=== PATIENT | male | born 1935 | race Caucasian/White ===

== ENCOUNTER 2017-08-04 16:56 | Inpatient (IN) | payer OTHER ==
[~2017-08-04] VITALS: Ht 167.6 cm; Wt 77.2 kg
[~2017-08-04 16:56] MED LIST changes: -ASPI81TA28 PO; -LIDOCAINE HCL 2% 2 ML VIAL (20MG/ML) ONE; -PROPOFOL IV EMULSION 10 MG/ML 20 ML VIAL IV ONE; -SODIUM CHLORIDE 0.9% 500ML 500 ML IV ONE
[2017-08-04] MEDS ORDERED: ACETAMINOPHEN 500 MG TAB PO STA (18:34)
[2017-08-04] MEDS ORDERED: SODIUM CHLORIDE 0.9% 1000ML 1,000 ML IV ONE (18:34)
--- NOTE | 2017-08-04 18:51 | EMERGENCY ROOM VISIT NOTE ---
History Report prepared by Venancio: Bj Lama Under the Supervision of: Dr. Bruce Vernon M.D. First contact with patient: 18:10 Chief Complaint: NEURO SYMPTOMS Stated Complaint: TREMORS S/P COLONOSCOPY TODAY Nursing Triage Summary: pt had colonoscopy at 1100 today has been shakey ever since . daughter reports pt has been sick since being of june and this was another test to see what was wrong with him. losing wt., constipation ,weakness ,wobbly on feet ,shakey History of Present Illness The patient is an 81 year old male who presents to the Emergency Room with complaints of persistent shaking and tremors starting this morning. The patient states that he had a colonoscopy done today at 1100, and afterwards he had something to eat and went home. He states that when he got home he was very cold , and he was shaking. He was wrapped up in a blanket, and he started to get warm again. The patient is denying any abdominal pain. The patient states that he got the colonoscopy due to having problems since June, and he has been fatigued, losing weight, weak, unable to sleep, and constipated before the colonoscopy. The patient additionally reports that he is having some back pain and pain down the back of his legs. He states that he has not had any problems with anesthesia in the past. The patient has a history of an aortic aneurysm, diverticulitis, and Grave's disease, though his thyroid has been fine recently, and his abdominal CT scans have been fine. The patient states that he does not vigil, and he states that he has a dog that occasionally goes outside. Source of History: patient, family Onset: this morning Position: other (global) Quality: other (shaking and tremors) Timing: other (persistent) Associated Symptoms: + back pain, No abdominal pain Review of Systems See HPI for pertinent positives & negatives. A total of 10 systems reviewed and were otherwise negative. Past Medical & Surgical Medical Problems: (1) CAD (coronary artery disease), [place] coronary artery (2) Dilated aortic root (3) Diverticulosis (4) Dyslipidemia (5) GERD (gastroesophageal reflux disease) (6) HTN (hypertension) (7) Hypothyroidism (8) Macular degeneration (9) Pneumonia Surgical Problems: (1) H/O cardiac catheterization (2) H/O colonoscopy (3) History of appendectomy (4) History of esophagogastroduodenoscopy (EGD) (5) History of lumbar laminectomy Social History Smoking Status: Never Smoker Marital Status: Occupation Status: retired Current/Historical Medications Scheduled Aspirin (Aspirin Ec), 81 MG PO QPM Atorvastatin (Lipitor), 40 MG PO QPM Clopidogrel Bisulfate (Plavix), 1 TAB PO QAM Levothyroxine Sodium (Levothyroxine Sodium), 1 TAB PO QAM Lisinopril (Prinivil), 5 MG PO QPM Metoprolol Succ (Toprol Xl) (Toprol-Xl), 25 MG PO QAM Nitroglycerin (Nitrostat), 0.4 MG UT PRN Ocuvite Preservision (Ocuvite Preservision), 1 TAB PO BID Omeprazole (Prilosec), 20 MG PO BID Allergies Coded Allergies: Codeine (Verified Adverse Reaction, Mild, CONSTIPATION, 08/04/17) Physical Exam Vital Signs Date Time Temp Pulse Resp B/P (MAP) Pulse Ox O2 Delivery O2 Flow Rate FiO2 08/04/17 20:16 64 22 111/65 99 Room Air 08/04/17 18:49 96 Room Air 08/04/17 18:26 83 24 105/76 96 Room Air 08/04/17 18:24 79 08/04/17 17:09 37.9 99 18 116/70 94 Room Air Physical Exam GENERAL: Patient is a healthy-appearing well-nourished male HEAD: Normocephalic atraumatic EYES: Ocular movements intact pupils equal and react to light OROPHARYNX mucous membranes are moist no exudates present no erythema or edema present NECK: Supple no nuchal rigidity CHEST: Good equal expansion LUNGS: Clear and equal to auscultation CARDIAC: Normal S1 and S2 ABDOMEN: Soft nontender no guarding BACK: No CVA tenderness EXTREMITIES: No pain upon palpation normal muscle strength in all groups no clubbing cyanosis or edema NEURO: Patient is following commands and answering questions appropriately. Alert and oriented x3 Cranial Nerves 2-12 grossly intact Medical Decision & Procedures ER Provider Diagnostic Interpretation: Radiology results as stated below per my review and radiologist interpretation: CHEST ONE VIEW PORTABLE HISTORY: Sepsis COMPARISON: None. FINDINGS: Low lung volumes. No pleural effusions. No pneumothorax. The right lung is clear. The heart is mildly enlarged. Hazy appearance to the left mid to lower lung zone. IMPRESSION: Hazy appearance the left mid to lower lung zone. This may be due to overlapping soft tissue or represent a pneumonia. Electronically signed by: Goyo Gary M.D. 08/04/2017 7:49 PM Dictated Date/Time: 08/04/2017 7:47 PM ABDOMEN AND PELVIS CT WITH IV CONTRAST CT DOSE: 442.71 mGy.cm HISTORY: Pt c/o colonoscopy, rigors, fever TECHNIQUE: Multiaxial CT images of the abdomen and pelvis were performed following the use of intravenous contrast. A dose lowering technique was utilized adhering to the principles of ALARA. COMPARISON STUDY: Chest 08/04/2017. FINDINGS: Small patchy density within the lingula which is partially visualized. No pneumoperitoneum. No pneumatosis. There are few scattered tiny lytic lesions seen within the ribs. Dominant lesion within the left posterior 12th rib on image 133 measures 7 mm. The visualized ascending thoracic aorta measures up to 4.6 cm and diameter. Small hiatus hernia. Low-density soft tissue nodule adjacent to the distal descending thoracic aorta is nonspecific but could be related to the venous structures. This measures 1.5 cm. The liver, gallbladder, pancreas, and adrenal glands are unremarkable. There are few tiny hypodensities within the inferior spleen with the largest measuring 3 mm. These are too small to characterize. There are few tiny hypodense lesions within the left kidney measuring up to 3 mm. These are also too small to characterize. A 3 mm stone within the upper pole of the right kidney. No ureteral stones. No hydronephrosis. The bladder is not well-distended. There may be mild bladder wall thickening. No retroperitoneal lymphadenopathy. Colonic diverticulosis. No bowel wall thickening or obstruction. The appendix is not identified and is likely surgically absent. The prostate gland is mildly enlarged. IMPRESSION: 1. No bowel wall thickening or obstruction. 2. Colonic diverticulosis. 3. Right-sided nephrolithiasis. No ureteral stones. No hydronephrosis. 4. Aneurysmal dilatation of the ascending thoracic aorta which measures up to 4.6 cm in diameter. 5. A few scattered tiny lytic lesions seen within the ribs. These are nonspecific but raise the possibility of a neoplastic process such as multiple myeloma. Clinical correlation recommended. 6. Mild bladder wall thickening. This is likely due to underdistention. Recommend correlation with urinalysis. 7. Small patchy density within the lingula. This could represent atelectasis or pneumonia. Electronically signed by: Goyo Gary M.D. 08/04/2017 8:02 PM Dictated Date/Time: 08/04/2017 7:[address] DOSE: HISTORY: Pt c/o low back pain TECHNIQUE: Multiaxial CT images of the lumbar spine were performed and reformatted in the sagittal and coronal plane without the use of contrast. A dose lowering technique was utilized adhering to the principles of ALARA. COMPARISON: Abdomen and pelvis CT 08/04/2017. FINDINGS: No fractures within the lumbar spine. Alignment appears intact. There is advanced degenerative changes within the lower facets. Moderate to space narrowing at L5-S1. Mild disc space are at L4-L5. There are severe disc space narrowing at L1-L2, L2-L3, and L3-L4 with small endplate osteophytes. Levoscoliosis of the lumbar spine. The visualized sacrum appears intact. Paraspinal soft tissues are unremarkable. Moderate to severe central canal narrowing at L3-L4 due to a disc bulge and ligamentum and facet hypertrophy. Suggest of a few tiny lytic lesions within the ribs. IMPRESSION: 1. No fractures identified within the lumbar spine. 2. Levoscoliosis. 3. Advanced degenerative changes as described above most pronounced at the L3-L4 level where there is moderate to severe central canal narrowing. 4. There is again suggestion of a few tiny lytic lesions within the visualized ribs. However, no definite lytic lesions identified within the spine. Electronically signed by: Goyo Gary M.D. 08/04/2017 8:34 PM Dictated Date/Time: 08/04/2017 8:27 PM Laboratory Results Test 08/04/17 18:23 08/04/17 18:35 08/04/17 18:45 08/04/17 19:06 Bedside Glucose 169 mg/dl (70-99) Influenza Type A Antigen Neg for Influ A (NEG) Influenza Type B Antigen Neg for Influ B (NEG) Prothrombin Time 11.0 SECONDS (9.0-12.0) Prothromb Time International Ratio 1.0 (0.9-1.1) Activated Partial Thromboplast Time 22.9 SECONDS (21.0-31.0) Partial Thromboplastin Ratio 0.9 Total Bilirubin 0.6 mg/dl (0.2-1) Aspartate Amino Transf (AST/SGOT) 27 U/L (15-37) Alanine Aminotransferase (ALT/SGPT) 37 U/L (12-78) Alkaline Phosphatase 60 U/L (45-117) Total Creatine Kinase 71 U/L (39-308) Creatine Kinase MB 1.4 ng/ml (0.5-3.6) Creatine Kinase MB Ratio 2.0 (0-3.0) Troponin I < 0.015 ng/ml (0-0.045) Total Protein 6.7 gm/dl (6.4-8.2) Albumin 3.4 gm/dl (3.4-5.0) Globulin 3.3 gm/dl (2.5-4.0) Albumin/Globulin Ratio 1.0 (0.9-2) Procalcitonin 0.05 ng/ml (0-0.5) Lyme Disease IgG Antibody NEG (NEG) Lyme Disease IgM Antibody NEG (NEG) Bedside Lactic Acid Venous 1.60 mmol/L (0.90-1.70) Test 08/04/17 19:09 08/04/17 19:22 Bedside Hemoglobin 13.6 g/dl (14.0-18.0) Bedside Hematocrit 40 % (42-52) Bedside Sodium 141 mEq/L (135-144) Bedside Potassium 3.6 mEq/L (3.3-5.0) Bedside Chloride 102 mEq/L (101-112) Bedside Total CO2 23 mEq/l (24-31) Bedside Blood Urea Nitrogen 13 mg/dl (7-18) Bedside Creatinine 0.8 mg/dl (0.6-1.3) Bedside Glucose (other) 166 mg/dl (70-99) Bedside Ionized Calcium (Armin) 1.13 mmol/l (1.12-1.32) Urine Color YELLOW Urine Appearance CLEAR (CLEAR) Urine pH 5.0 (4.5-7.5) Urine Specific [place] 1.020 (1.000-1.030) Urine Glucose (UA) NEG (NEG) Urine Ketones TRACE (NEG) Urine Occult Blood 1+ (NEG) Urine Nitrite NEG (NEG) Urine Bilirubin NEG (NEG) Urine Urobilinogen NEG (NEG) Urine Leukocyte Esterase NEG (NEG) Urine RBC 0-4 /hpf (0-4) Urine WBC 1-5 /hpf (0-5) Urine Epithelial Cells 0-5 /lpf (0-5) Urine Bacteria NEG (NEG) Labs reviewed by ED physician. Medications Administered Medications (Trade) Dose Ordered Sig/Cornelius Route Start Time Stop Time Status Last Admin Dose Admin Sodium Chloride 1,000 ml @ 999 mls/hr Q1H1M ONCE IV 08/04/17 18:34 08/04/17 19:34 DC 08/04/17 19:16 999 MLS/HR Acetaminophen (Tylenol Tab) 1,000 mg NOW STAT PO 08/04/17 18:34 08/04/17 18:37 DC 08/04/17 19:15 1,000 MG Piperacillin Sod/ Tazobactam Sod (Zosyn Iv) 4.5 gm NOW STAT IV 08/04/17 19:57 08/04/17 19:58 DC 08/04/17 20:12 4.5 GM Sodium Chloride 1,000 ml @ 999 mls/hr Q1H1M STAT IV 08/04/17 19:57 08/04/17 20:57 DC 08/04/17 20:12 999 MLS/HR Levofloxacin (Levaquin / D5W) 750 mg NOW STAT IV 08/04/17 20:01 08/04/17 20:02 DC 08/04/17 20:54 750 MG Vancomycin HCl (Vancomycin 1gm/ 270ml Nss) 1 gm NOW STAT IV 08/04/17 20:01 08/04/17 20:02 DC 08/04/17 22:20 1 GM ECG Per My Interpretation Indication: other (tremors) Rate (beats per minute): 78 Rhythm: normal sinus Findings: left axis deviation, other (No ST elevation or depression) ED Course 1809: Past medical records reviewed. The patient was evaluated in room B6. A complete history and physical examination was performed. 1833: Tylenol Tab 1000mg PO, Sodium Chloride 1000 ml @ 999 mls/hr 1956: Sodium Chloride 1000 ml @ 999 mls/hr, Daptomycin 472mg/ Sodium Chloride 59.44ml @ 1000mls/hr IV, Zosyn 4.5gm IV 1958: Sodium Chloride 150 ml @ 999 mls/hr 2000: Vancomycin HCl 1gm IV, Levofloxacin 750mg PO 2012: Upon reexamination the patient is doing okay. I discussed results and treatment plan with the patient. He verbalizes agreement and understanding. The patient will be evaluated for further management. 2014: I discussed the patient's [facility], she has agreed to evaluate the patient for further management and care. Medical Decision Differential diagnosis: Etiologies such as appendicitis, diverticulitis, PUD, biliary pathology, UTI, pancreatitis, obstruction, mesenteric ischemia, aortic pathology, infections, inflammatory bowel disease, renal colic, as well as others were entertained. This is an 81-year-old male presents emergency department complaining of shaking spells after his colonoscopy today. I will note that the patient is slightly hypotensive and tachycardic. He does appear to have pneumonia on his chest x-ray therefore he was pancultured up and started on antibiotics. Due to the fact that the patient had a colonoscopy earlier today he was sent for a CAT scan the abdomen and pelvis. This did not show any evidence of perforation and he is benign soft examination. CAT scan is concerning for lytic lesions and I did discuss the case with the hospitalist service who agreed to admit the patient. Patient was started on Zosyn and Levaquin in the emergency department . Medication Reconcilliation Current Medication List: was personally reviewed by me Blood Pressure Screening Patient's blood pressure: Normal blood pressure Consults Time Called: 2011 Consulting Physician: Dr. Destinee Patino Returned Call: 2014 I discussed the patient's case with Dr. Destinee Patino, she has agreed to evaluate the patient for further management and care. Impression Primary Impression: Pneumonia Scribe Attestation The scribe's documentation has been prepared under my direction and personally reviewed by me in its entirety. I confirm that the note above accurately reflects all work, treatment, procedures, and medical decision making performed by me. Departure Information Dispostion Being Evaluated By Hospitalist Referrals Aftab Stubbs D.O. (PCP) Patient Instructions My [facility] Problem Qualifiers Primary Impression: Pneumonia Pneumonia type: due to unspecified organism Laterality: unspecified laterality Lung location: unspecified part of lung Qualified Codes: J18.9 - Pneumonia, unspecified organism
[2017-08-04] MEDS ORDERED: OPTIRAY 320 IV PRN (19:00)
[2017-08-04] MEDS ORDERED: ASPI81TA28 PO ×2 (19:02)
[2017-08-04 19:13] LABS: BASO % 0.2 %; BASO ABS # 0.02 K/uL (0-0.2); EOS % 0.5 %; EOS ABS # 0.07 K/uL (0-0.5); HEMATOCRIT 39.8 % (42-52); HEMOGLOBIN 13.8 g/dL (14.0-18.0); IG# 0.04 K/uL (0.00-0.02); LYMPH % 5.9 %; LYMPH ABS # 0.76 K/uL (1.2-3.4); MEAN CELL VOLUME 90.5 fL (80-100); MEAN CORPUSCULAR HEMOGLOBIN 31.4 pg (25-34); MEAN CORPUSCULAR HGB CONC 34.7 g/dl (32-36); MONO % 7.3 %; MONO ABS # 0.94 K/uL (0.11-0.59); NEUT % 85.8 %; NEUT ABS # 11.13 K/uL (1.4-6.5); PLATELET COUNT 133 K/uL (130-400); RED CELL DISTRIBUTION WIDTH CV 13.7 % (11.5-14.5); RED CELL DISTRIBUTION WIDTH SD 45.5 fL (36.4-46.3); WHITE BLOOD COUNT 12.96 K/uL (4.8-10.8)
[2017-08-04 19:16] LABS: INFLUENZA B ANTIGEN Neg for Influ B (NEG)
[2017-08-04 19:20] LABS: ISTAT CREATININE 0.8 mg/dl (0.6-1.3); ISTAT IONIZED CALCIUM 1.13 mmol/l (1.12-1.32); ISTAT POTASSIUM 3.6 mEq/L (3.3-5.0)
[2017-08-04 19:22] LABS: PTT PATIENT 22.9 SECONDS (21.0-31.0)
[2017-08-04 19:30] LABS: ALBUMIN 3.4 gm/dl (3.4-5.0); ALT/SGPT 37 U/L (12-78); BLOOD UREA NITROGEN 13 mg/dl (7-18); CALCIUM 8.2 mg/dl (8.5-10.1); CARBON DIOXIDE 27 mmol/L (21-32); CREATININE 1.05 mg/dl (0.60-1.40); GLUCOSE 168 mg/dl (70-99); POTASSIUM 3.7 mmol/L (3.5-5.1); SODIUM 139 mmol/L (136-145)
[2017-08-04 19:35] LABS: ALKALINE PHOSPHATASE 60 U/L (45-117); AST/SGOT 27 U/L (15-37); CKMB 1.4 ng/ml (0.5-3.6); TOTAL PROTEIN 6.7 gm/dl (6.4-8.2)
--- NOTE | 2017-08-04 19:51 | DIAGNOSTIC IMAGING REPORT ---
CHEST ONE VIEW PORTABLE HISTORY: Sepsis COMPARISON: None. FINDINGS: Low lung volumes. No pleural effusions. No pneumothorax. The right lung is clear. The heart is mildly enlarged. Hazy appearance to the left mid to lower lung zone. IMPRESSION: Hazy appearance the left mid to lower lung zone. This may be due to overlapping soft tissue or represent a pneumonia. Electronically signed by: Goyo Gary M.D. 08/04/2017 7:49 PM Dictated Date/Time: 08/04/2017 7:47 PM
[2017-08-04] MEDS ORDERED: SODIUM CHLORIDE 0.9% 1000ML 1,000 ML IV STA (19:57)
[2017-08-04] MEDS ORDERED: PIPERACILLIN/TAZOBACTAM 4.5 GM/100ML D5W IV STA (19:57)
[2017-08-04] MEDS ORDERED: SODIUM CHLORIDE 0.9% IV STA (19:57)
[2017-08-04] MEDS ORDERED: DAPTOMYCIN IV STA (19:57)
[2017-08-04] MEDS ORDERED: SODIUM CHLORIDE 0.9% 150ML 150 ML IV STA (19:59)
[2017-08-04] MEDS ORDERED: VANCOMYCIN 1GM/270ML NSS IV STA (20:01)
[2017-08-04] MEDS ORDERED: LEVAQUIN 750MG / 150ML D5W IV STA (20:01)
--- NOTE | 2017-08-04 20:03 | DIAGNOSTIC IMAGING REPORT ---
ABDOMEN AND PELVIS CT WITH IV CONTRAST CT DOSE: 442.71 mGy.cm HISTORY: Pt c/o colonoscopy, rigors, fever TECHNIQUE: Multiaxial CT images of the abdomen and pelvis were performed following the use of intravenous contrast. A dose lowering technique was utilized adhering to the principles of ALARA. COMPARISON STUDY: Chest 08/04/2017. FINDINGS: Small patchy density within the lingula which is partially visualized. No pneumoperitoneum. No pneumatosis. There are few scattered tiny lytic lesions seen within the ribs. Dominant lesion within the left posterior 12th rib on image 133 measures 7 mm. The visualized ascending thoracic aorta measures up to 4.6 cm and diameter. Small hiatus hernia. Low-density soft tissue nodule adjacent to the distal descending thoracic aorta is nonspecific but could be related to the venous structures. This measures 1.5 cm. The liver, gallbladder, pancreas, and adrenal glands are unremarkable. There are few tiny hypodensities within the inferior spleen with the largest measuring 3 mm. These are too small to characterize. There are few tiny hypodense lesions within the left kidney measuring up to 3 mm. These are also too small to characterize. A 3 mm stone within the upper pole of the right kidney. No ureteral stones. No hydronephrosis. The bladder is not well-distended. There may be mild bladder wall thickening. No retroperitoneal lymphadenopathy. Colonic diverticulosis. No bowel wall thickening or obstruction. The appendix is not identified and is likely surgically absent. The prostate gland is mildly enlarged. IMPRESSION: 1. No bowel wall thickening or obstruction. 2. Colonic diverticulosis. 3. Right-sided nephrolithiasis. No ureteral stones. No hydronephrosis. 4. Aneurysmal dilatation of the ascending thoracic aorta which measures up to 4.6 cm in diameter. 5. A few scattered tiny lytic lesions seen within the ribs. These are nonspecific but raise the possibility of a neoplastic process such as multiple myeloma. Clinical correlation recommended. 6. Mild bladder wall thickening. This is likely due to underdistention. Recommend correlation with urinalysis. 7. Small patchy density within the lingula. This could represent atelectasis or pneumonia. Electronically signed by: Goyo Gary M.D. 08/04/2017 8:02 PM Dictated Date/Time: 08/04/2017 7:51 PM
--- NOTE | 2017-08-04 20:35 | DIAGNOSTIC IMAGING REPORT ---
LUMBAR SPINE CT CT DOSE: HISTORY: Pt c/o low back pain TECHNIQUE: Multiaxial CT images of the lumbar spine were performed and reformatted in the sagittal and coronal plane without the use of contrast. A dose lowering technique was utilized adhering to the principles of ALARA. COMPARISON: Abdomen and pelvis CT 08/04/2017. FINDINGS: No fractures within the lumbar spine. Alignment appears intact. There is advanced degenerative changes within the lower facets. Moderate to space narrowing at L5-S1. Mild disc space are at L4-L5. There are severe disc space narrowing at L1-L2, L2-L3, and L3-L4 with small endplate osteophytes. Levoscoliosis of the lumbar spine. The visualized sacrum appears intact. Paraspinal soft tissues are unremarkable. Moderate to severe central canal narrowing at L3-L4 due to a disc bulge and ligamentum and facet hypertrophy. Suggest of a few tiny lytic lesions within the ribs. IMPRESSION: 1. No fractures identified within the lumbar spine. 2. Levoscoliosis. 3. Advanced degenerative changes as described above most pronounced at the L3-L4 level where there is moderate to severe central canal narrowing. 4. There is again suggestion of a few tiny lytic lesions within the visualized ribs. However, no definite lytic lesions identified within the spine. Electronically signed by: Goyo Gary M.D. 08/04/2017 8:34 PM Dictated Date/Time: 08/04/2017 8:27 PM
[2017-08-04] MEDS ORDERED: POLYETHYLENE (MIRALAX) 17 GM PACK PO PRN (21:15)
[2017-08-04] MEDS ORDERED: ACETAMINOPHEN 325 MG TAB PO PRN (21:15)
[2017-08-04] MEDS ORDERED: NITROGLYCERIN 0.4 MG SL PER TAB CHARGE UT SCH (21:15)
[2017-08-04] MEDS ORDERED: ONDANSETRON INJ 2 MG/ML 2 ML VIAL IV PRN (21:15)
--- NOTE | 2017-08-04 21:40 | History and Physical ---
History & Physical Date & Time of Service: Aug 04, 2017 at 21:36 Chief Complaint: Tremors S/P Colonoscopy Today Primary Care Physician: Aftab Stubbs D.O. History of Present Illness Source: patient, family, clinic records Patient is an 81 yo male who presents to the hospital today for complaints of rigors and chills which began earlier this afternoon after the patient had an outpatient colonoscopy and ate lunch. He states his symptoms began as soon as he came home from lunch, and that he required several blankets to get him feeling better. He denies any other similar symptoms. He states he had a minor aspiration episode earlier today after the colonoscopy but had not been coughing prior to that. He reports having upper back and upper chest soreness for the last 1 week but denies any injury or coughing. He also reports that he has been worked up the last 2 months for unexplained weight loss, weakness, and ambulatory dysfunction. He underwent an EGD and colonoscopy which were both negative. The patient reports decreased appetite and decreased desire to eat or do activities he used to enjoy. He reports feeling tired and weak all the time. He also reports having constipation, but thinks the laxatives and stool softeners seem to make him feel even weaker. He denies any CP, SOB, palpitations , melena, hematochezia, or urinary symptoms. Denies any recent illness or sick contacts. No recent medication changes. Past Medical/Surgical History Medical Problems: (1) CAD (coronary artery disease), [place] coronary artery; s/p previous [place] (2) Dilated aortic root (3) Diverticulosis (4) Dyslipidemia (5) GERD (gastroesophageal reflux disease) (6) HTN (hypertension) (7) Hypothyroidism (8) Macular degeneration (9) Pneumonia Surgical Problems: (1) H/O cardiac catheterization (2) H/O colonoscopy (3) History of appendectomy (4) History of esophagogastroduodenoscopy (EGD) (5) History of lumbar laminectomy Family History Sister: ovarian CA Father: Hodgkins lymphoma Sister: CVA Mother: heart disease Social History Smoking Status: Never Smoker Alcohol Use: none Drug Use: none Marital Status: Housing status: lives with family Occupational Status: retired Immunizations History of Influenza Vaccine: Yes History of Pneumococcal: Yes Multi-Drug Resistant Organisms History of MDRO: No Allergies Coded Allergies: Codeine (Verified Adverse Reaction, Mild, CONSTIPATION, 2/21/18) Home Medications Scheduled Aspirin (Aspirin Ec), 81 MG PO QPM Atorvastatin (Lipitor), 40 MG PO QPM Clopidogrel Bisulfate (Plavix), 1 TAB PO QAM Levothyroxine Sodium (Levothyroxine Sodium), 1 TAB PO QAM Lisinopril (Prinivil), 5 MG PO QPM Metoprolol Succ (Toprol Xl) (Toprol-Xl), 25 MG PO QAM Nitroglycerin (Nitrostat), 0.4 MG UT PRN Ocuvite Preservision (Ocuvite Preservision), 1 TAB PO BID Omeprazole (Prilosec), 20 MG PO BID Review of Systems Constitutional: + chills, + sweats, + weight loss, + weakness, + fatigue Eyes: No eye pain, No redness, No diplopia ENT: No hearing loss, No nasal symptoms, No sore throat, No trouble swallowing Respiratory: No cough, No sputum, No wheezing, No shortness of breath, No hemoptysis Cardiovascular: No chest pain, No edema, No palpitations Abdomen: + constipation, No pain, No nausea, No vomiting, No diarrhea Musculoskeletal: No joint pain, No swelling, No problem reported Genitourinary - Male: No hematuria, No dysuria, No urinary frequency, No urinary urgency Neurologic: + weakness, No numbness/tingling, No vertigo, No balance problems Psychiatric: + anhedonism, No anxiety, No insomnia Endocrine: + fatigue, No excessive thirst, No excessive urination Hematologic / Lymphatic: No abnormal bleeding/bruising, No clotting problems, No swollen lymph nodes Integumentary: No rash, No itch, No new/changing skin lesions Physical Exam Vital Signs Date Time Temp Pulse Resp B/P (MAP) Pulse Ox O2 Delivery O2 Flow Rate FiO2 08/04/17 20:16 64 22 111/65 99 Room Air 08/04/17 18:49 96 Room Air 08/04/17 18:26 83 24 105/76 96 Room Air 08/04/17 18:24 79 08/04/17 17:09 37.9 99 18 116/70 94 Room Air General Appearance: WD/WN, no apparent distress Head: normocephalic, atraumatic Eyes: PERRL, EOMI, sclerae normal (conjunctivae clear) ENT: hearing grossly normal Neck: supple, no adenopathy, no JVD, no carotid bruits, trachea midline Respiratory/Chest: chest non-tender, lungs clear, normal breath sounds, no respiratory distress, no accessory muscle use Cardiovascular: regular rate, rhythm, no edema, no gallop, no JVD Abdomen/GI: normal bowel sounds, non tender, soft, no organomegaly Back: normal inspection, no CVA tenderness Extremities/Musculoskelatal: no calf tenderness, no pedal edema, non-tender Neurologic/Psych: no motor/sensory deficits, alert, normal mood/affect, oriented x 3 Skin: normal color, warm/dry, no rash Diagnostics Laboratory Results Results Past 24 Hours Test 08/04/17 18:35 08/04/17 18:45 08/04/17 19:06 08/04/17 19:09 Range/Units Influenza Type A Antigen Neg for Influ A NEG Influenza Type B Antigen Neg for Influ B NEG White Blood Count 12.96 4.8-10.8 K/uL Red Blood Count 4.40 4.7-6.1 M/uL Hemoglobin 13.8 14.0-18.0 g/dL Hematocrit 39.8 42-52 % Mean Corpuscular Volume 90.5 80-100 fL Mean Corpuscular Hemoglobin 31.4 25-34 pg Mean Corpuscular Hemoglobin Concent 34.7 32-36 g/dl Platelet Count 133 130-400 K/uL Mean Platelet Volume 10.0 7.4-10.4 fL Neutrophils (%) (Auto) 85.8 % Lymphocytes (%) (Auto) 5.9 % Monocytes (%) (Auto) 7.3 % Eosinophils (%) (Auto) 0.5 % Basophils (%) (Auto) 0.2 % Neutrophils # (Auto) 11.13 1.4-6.5 K/uL Lymphocytes # (Auto) 0.76 1.2-3.4 K/uL Monocytes # (Auto) 0.94 0.11-0.59 K/uL Eosinophils # (Auto) 0.07 0-0.5 K/uL Basophils # (Auto) 0.02 0-0.2 K/uL RDW Standard Deviation 45.5 36.4-46.3 fL RDW Coefficient of Variation 13.7 11.5-14.5 % Immature Granulocyte % (Auto) 0.3 % Immature Granulocyte # (Auto) 0.04 0.00-0.02 K/uL Prothrombin Time 11.0 9.0-12.0 SECONDS Prothromb Time International Ratio 1.0 0.9-1.1 Activated Partial Thromboplast Time 22.9 21.0-31.0 SECONDS Partial Thromboplastin Ratio 0.9 Sodium Level 139 136-145 mmol/L Potassium Level 3.7 3.5-5.1 mmol/L Chloride Level 106 98-107 mmol/L Carbon Dioxide Level 27 21-32 mmol/L Anion Gap 6.0 20.0 16-25 mmol/L Blood Urea Nitrogen 13 7-18 mg/dl Creatinine 1.05 0.60-1.40 mg/dl Est Creatinine Clear Calc Drug Dose 52.5 ml/min Estimated GFR () 76.2 Estimated GFR (Non- 65.8 BUN/Creatinine Ratio 12.3 10-20 Random Glucose 168 70-99 mg/dl Calcium Level 8.2 8.5-10.1 mg/dl Total Bilirubin 0.6 0.2-1 mg/dl Aspartate Amino Transf (AST/SGOT) 27 15-37 U/L Alanine Aminotransferase (ALT/SGPT) 37 12-78 U/L Alkaline Phosphatase 60 45-117 U/L Total Creatine Kinase 71 39-308 U/L Creatine Kinase MB 1.4 0.5-3.6 ng/ml Creatine Kinase MB Ratio 2.0 0-3.0 Troponin I < 0.015 0-0.045 ng/ml Total Protein 6.7 6.4-8.2 gm/dl Albumin 3.4 3.4-5.0 gm/dl Globulin 3.3 2.5-4.0 gm/dl Albumin/Globulin Ratio 1.0 0.9-2 Lyme Disease IgG Antibody NEG NEG Lyme Disease IgM Antibody NEG NEG Bedside Lactic Acid Venous 1.60 0.90-1.70 mmol/L Bedside Hemoglobin 13.6 14.0-18.0 g/dl Bedside Hematocrit 40 42-52 % Bedside Sodium 141 135-144 mEq/L Bedside Potassium 3.6 3.3-5.0 mEq/L Bedside Chloride 102 101-112 mEq/L Bedside Total CO2 23 24-31 mEq/l Bedside Blood Urea Nitrogen 13 7-18 mg/dl Bedside Creatinine 0.8 0.6-1.3 mg/dl Bedside Glucose (other) 166 70-99 mg/dl Bedside Ionized Calcium (Armin) 1.13 1.12-1.32 mmol/l Test 08/04/17 19:22 Range/Units Urine Color YELLOW Urine Appearance CLEAR CLEAR Urine pH 5.0 4.5-7.5 Urine Specific [place] 1.020 1.000-1.030 Urine Protein NEG NEG Urine Glucose (UA) NEG NEG Urine Ketones TRACE NEG Urine Occult Blood 1+ NEG Urine Nitrite NEG NEG Urine Bilirubin NEG NEG Urine Urobilinogen NEG NEG Urine Leukocyte Esterase NEG NEG Urine RBC 0-4 0-4 /hpf Urine WBC 1-5 0-5 /hpf Urine Epithelial Cells 0-5 0-5 /lpf Urine Bacteria NEG NEG Microbiology Results 08/04/17 Blood Culture, Received Pending 08/04/17 Blood Culture, Received Pending Normal EKG Impression Assessment and Plan PROBABLE PNEUMONIA: -CXR: opacity on left mid to base lung, possible pneumonia -was given zosyn, daptomycin, and levaquin in the ER; will continue on ceftriaxone and azithro -sputum and blood cultures -consider CT chest for further evaluation of lytic lesions in ribs -lactic acid and procalcitonin not elevated -+ fever and leukocytosis UNINTENTIONAL WEIGHT LOSS/WEAKNESS: -has been in the process of workup as an outpatient; negative CT abd/pelvis -CT lumbar spine -TSH and free T4 normal -EGD and colonoscopy normal -incidental rib lytic lesions, will order SPEP and FLC UPEP for further workup of possible MM -check CT chest -will place on regular diet -PT/OT evals CAD: -stable -no related symptoms -last TTE showed EF 55-59%, grade I diastolic -continued on asa, plavix, and statin HTN: -stable -continue home meds DYSLIPIDEMIA: -continue statin HYPOTHYROIDISM: -prior hx of Graves -TSH and T4 checked 4 weeks ago were normal -continue levothyroxine Level of Care Med/Surg Resuscitation Status FULL RESUSCITATION VTE Prophylaxis VTE Risk Assessment Done? Y/N: Yes Risk Level: Moderate Given or contraindicated: Enoxaparin (Lovenox)SQ
[2017-08-04] MEDS ORDERED: VANCOMYCIN 1GM/270ML NSS ONE (22:19)
[2017-08-04 22:21] VITALS: O2SAT 95
[2017-08-04 23:06] VITALS: BP 107/71; PULSE 58; TEMP 36.5; O2SAT 96
[2017-08-05] VITALS: Ht 167.6 cm; Wt 77.2 kg
[2017-08-05] MEDS ORDERED: PNEUMOCOCCAL ADMINISTRATION CHARGE ONE (01:15)
[2017-08-05] MEDS ORDERED: PNEUMOCOCCAL POLYSACCHARIDES 25 MCG/0.5 ML VIAL/SYR IM. ONE (01:15)
[2017-08-05] MEDS: LEVOTHYROXINE 88 MCG TAB PO SCH (05:55)
[2017-08-05 06:58] LABS: BASO % 0.3 %; BASO ABS # 0.03 K/uL (0-0.2); EOS % 2.4 %; EOS ABS # 0.23 K/uL (0-0.5); HEMATOCRIT 36.2 % (42-52); HEMOGLOBIN 12.2 g/dL (14.0-18.0); IG# 0.01 K/uL (0.00-0.02); LYMPH % 11.8 %; LYMPH ABS # 1.11 K/uL (1.2-3.4); MEAN CELL VOLUME 92.1 fL (80-100); MEAN CORPUSCULAR HGB CONC 33.7 g/dl (32-36); MEAN PLATELET VOLUME 9.7 fL (7.4-10.4); MONO % 8.4 %; MONO ABS # 0.79 K/uL (0.11-0.59); NEUT ABS # 7.23 K/uL (1.4-6.5); PLATELET COUNT 112 K/uL (130-400); RED CELL DISTRIBUTION WIDTH CV 13.7 % (11.5-14.5); RED CELL DISTRIBUTION WIDTH SD 46.4 fL (36.4-46.3)
[2017-08-05 07:08] VITALS: BP 143/81; PULSE 52; TEMP 36.8; O2SAT 96
[2017-08-05 07:39] LABS: CALCIUM 7.8 mg/dl (8.5-10.1); CREATININE 0.91 mg/dl (0.60-1.40); POTASSIUM 4.1 mmol/L (3.5-5.1)
[2017-08-05] MEDS: CEFTRIAXONE SOD INJ 1 GM in DEXTROSE 5% ADD-VANTAGE 50ML 50 ML IV SCH (08:27)
[2017-08-05] MEDS: CLOPIDOGREL BISULFATE 75 MG TAB PO SCH (08:27)
[2017-08-05] MEDS: METOPROLOL SUCC 25MG EXT REL TAB PO SCH (08:27)
[2017-08-05] MEDS: AZITHROMYCIN 250 MG TAB PO SCH (08:28)
[2017-08-05] MEDS: PANTOprazole SOD 40 MG TAB PO SCH ×2 (08:28→21:37)
[2017-08-05] MEDS: CEROVITE ADV FORMULA TAB PO SCH ×2 (08:28→21:37)
[2017-08-05] MEDS: ENOXAPARIN 40 MG/0.4 ML SYR SQ SCH (09:39)
--- NOTE | 2017-08-05 12:51 | Progress Note ---
Progress Note Date of Service Aug 05, 2017. Progress Note Patient admitted for shaking spells after colonoscopy. Work up thus far has not shown any signs of perforation or complication from colonoscopy. Objective data not definitively supporting aspiration either. There is now concern for a more systemic malignant process given rib lesions. Discussed with family as well. Kelby Salazar M.D.
[2017-08-05 15:39] VITALS: BP 127/80; PULSE 59; TEMP 36.9; O2SAT 96
--- NOTE | 2017-08-05 19:17 | Progress Note ---
Progress Note Date of Service Aug 05, 2017. Progress Note Subjective: Patient seen and examined. Generally well appearing. Denies shortness of breath Denies further symptoms from admission. General Appearance: no apparent distress Head: normocephalic, atraumatic Eyes: PERRL,sclerae normal ENT: hearing grossly normal Neck: supple, no adenopathy, no JVD, no carotid bruits, trachea midline Respiratory/Chest: chest non-tender, lungs clear, normal breath sounds, no respiratory distress, no accessory muscle use Cardiovascular: regular rate, rhythm, no edema, no gallop, no JVD Abdomen/GI: normal bowel sounds, non tender, soft, no organomegaly Back: normal inspection, no CVA tenderness Extremities/Musculoskelatal: no calf tenderness, no pedal edema, non-tender Neurologic/Psych: no motor/sensory deficits, alert, normal mood/affect, oriented x 3 Skin: normal color, warm/dry, no rash Plan: Patient admitted for shaking spells after colonoscopy. Work up thus far has not shown any signs of perforation or complication from colonoscopy. Patient unlikely having septic source and no respiratory symptoms strongly suggestive of pneumonia Was given zosyn, daptomycin, and levaquin in the ER, and then on ceftriaxone and azithromycin for pneumonia Will continue ceftriaxone and azithromycin for now but no respiratory symptoms and CXR of opacity on left mid to base lung does not really correlate as pneumonia on Abdomen CT scan which images the bases of lung tejeda However lytic lesions were seen on ribs on chest X ray Given history of recurrent fevers or fever like symptoms at home over period of 2 months, am concerned for malignancy such as multiple myeloma immunoglobulins/ SPEP and FLC UPEP pending results skeletal survey ordered CAD: -stable -no related symptoms -last TTE showed EF 55-59%, grade I diastolic -continued on asa, plavix, and statin HTN: -stable -continue home meds DYSLIPIDEMIA: -continue statin HYPOTHYROIDISM: -prior hx of Graves -TSH and T4 checked 4 weeks ago were normal -continue levothyroxine DVT ppx
--- NOTE | 2017-08-05 20:04 | DIAGNOSTIC IMAGING REPORT ---
SKELETAL SURVEY COMPLETE CLINICAL HISTORY: Possible multiple myeloma. COMPARISON STUDY: CT of the abdomen and pelvis, CT of the lumbar spine and chest radiograph August 04, 2017. FINDINGS: Moderate cardiomegaly is noted. No airspace opacities are identified. There is no evidence for pulmonary edema. No cervical, thoracic or lumbar spine lytic lesion is identified. No compression fracture is identified. Moderate multilevel degenerative changes are present. There is mild levoscoliosis of the lumbar spine. The bowel gas pattern is normal. No suspicious lytic calvarial lesions are identified. No suspicious lytic lesions are identified within the humeri, femurs or pelvis. The subtle lytic lesions shown within several ribs on CT of August 04, 2017 are not apparent on this exam, likely due to technique. IMPRESSION: 1. No suspicious lytic lesions by radiography. 2. The small lytic lesions shown within several ribs on CT of August 04, 2017 are not apparent on this exam, due to technique. These remain nonspecific. Electronically signed by: Grady Cartagena M.D. 08/05/2017 8:03 PM Dictated Date/Time: 08/05/2017 7:57 PM
[2017-08-05] MEDS ORDERED: LISINOPRIL 5 MG TAB PO SCH (21:00)
[2017-08-05] MEDS ORDERED: ATORVASTATIN 20 MG TAB PO SCH (21:00)
[2017-08-05] MEDS ORDERED: ASPIRIN 81 MG ECTAB PO SCH (21:00)
[2017-08-06 00:11] VITALS: BP 143/85; PULSE 52; TEMP 37.3; O2SAT 94
[2017-08-06] MEDS: LEVOTHYROXINE 88 MCG TAB PO SCH (06:09)
[2017-08-06 07:23] VITALS: BP 162/92; PULSE 56; TEMP 37; O2SAT 95
[2017-08-06 08:09] LABS: BASO % 0.6 %; BASO ABS # 0.04 K/uL (0-0.2); EOS % 5.4 %; EOS ABS # 0.38 K/uL (0-0.5); HEMATOCRIT 39.2 % (42-52); HEMOGLOBIN 13.3 g/dL (14.0-18.0); IG# 0.01 K/uL (0.00-0.02); LYMPH % 22.2 %; LYMPH ABS # 1.56 K/uL (1.2-3.4); MEAN CORPUSCULAR HEMOGLOBIN 31.2 pg (25-34); MEAN CORPUSCULAR HGB CONC 33.9 g/dl (32-36); MEAN PLATELET VOLUME 10.1 fL (7.4-10.4); MONO ABS # 0.49 K/uL (0.11-0.59); NEUT % 64.7 %; NEUT ABS # 4.55 K/uL (1.4-6.5); PLATELET COUNT 123 K/uL (130-400); RED CELL DISTRIBUTION WIDTH CV 13.9 % (11.5-14.5); RED CELL DISTRIBUTION WIDTH SD 46.6 fL (36.4-46.3); WHITE BLOOD COUNT 7.03 K/uL (4.8-10.8)
[2017-08-06] MEDS: CEFTRIAXONE SOD INJ 1 GM in DEXTROSE 5% ADD-VANTAGE 50ML 50 ML IV SCH (08:12)
[2017-08-06] MEDS: CEROVITE ADV FORMULA TAB PO SCH (08:13)
[2017-08-06] MEDS: ENOXAPARIN 40 MG/0.4 ML SYR SQ SCH (08:13)
[2017-08-06] MEDS: CLOPIDOGREL BISULFATE 75 MG TAB PO SCH (08:13)
[2017-08-06] MEDS: METOPROLOL SUCC 25MG EXT REL TAB PO SCH (08:13)
[2017-08-06] MEDS: AZITHROMYCIN 250 MG TAB PO SCH (08:13)
[2017-08-06] MEDS: PANTOprazole SOD 40 MG TAB PO SCH (08:13)
[2017-08-06 08:35] LABS: CALCIUM 8.8 mg/dl (8.5-10.1); CREATININE 1.02 mg/dl (0.60-1.40); POTASSIUM 4.1 mmol/L (3.5-5.1)
--- NOTE | 2017-08-06 14:02 | Progress Note ---
Internal Med Progress Note Date of Service: Aug 06, 2017. Provider Documentation: SUBJECTIVE: Patient denies shortness of breath. Breathing on room air. No distress. Awaiting lab results OBJECTIVE: General Appearance: no apparent distress Head: normocephalic, atraumatic Eyes: EOMI, sclerae normal ENT: hearing grossly normal Neck: supple, no adenopathy, no JVD, no carotid bruits, trachea midline Respiratory/Chest: chest non-tender, lungs clear, normal breath sounds, no respiratory distress, no accessory muscle use Cardiovascular: regular rate, rhythm, no edema, no gallop, no JVD Abdomen/GI: normal bowel sounds, non tender, soft, no organomegaly Back: normal inspection, no CVA tenderness Extremities/Musculoskelatal: no calf tenderness, no pedal edema, non-tender Neurologic/Psych: no motor/sensory deficits, alert, normal mood/affect, oriented x 3 Skin: normal color, warm/dry, no rash ASSESSMENT & PLAN: Imaging CXR: Low lung volumes. No pleural effusions. No pneumothorax. The right lung is clear. The heart is mildly enlarged. Hazy appearance to the left mid to lower lung zone Abdomen/Pelvis CT Small patchy density within the lingula which is partially visualized. No pneumoperitoneum. No pneumatosis. There are few scattered tiny lytic lesions seen within the ribs. Dominant lesion within the left posterior 12th rib on image 133 measures 7 mm. The visualized ascending thoracic aorta measures up to 4.6 cm and diameter. Small hiatus hernia. Low-density soft tissue nodule adjacent to the distal descending thoracic aorta is nonspecific but could be related to the venous structures. This measures 1.5 cm. The liver, gallbladder, pancreas, and adrenal glands are unremarkable. There are few tiny hypodensities within the inferior spleen with the largest measuring 3 mm. These are too small to characterize. There are few tiny hypodense lesions within the left kidney measuring up to 3 mm. These are also too small to characterize. A 3 mm stone within the upper pole of the right kidney. No ureteral stones. No hydronephrosis. The bladder is not well-distended. There may be mild bladder wall thickening. No retroperitoneal lymphadenopathy. Colonic diverticulosis. No bowel wall thickening or obstruction. The appendix is not identified and is likely surgically absent. The prostate gland is mildly enlarged. IMPRESSION: 1. No bowel wall thickening or obstruction. 2. Colonic diverticulosis. 3. Right-sided nephrolithiasis. No ureteral stones. No hydronephrosis. 4. Aneurysmal dilatation of the ascending thoracic aorta which measures up to 4.6 cm in diameter. 5. A few scattered tiny lytic lesions seen within the ribs. These are nonspecific but raise the possibility of a neoplastic process such as multiple myeloma. Clinical correlation recommended. 6. Mild bladder wall thickening. This is likely due to underdistention. Recommend correlation with urinalysis. 7. Small patchy density within the lingula. This could represent atelectasis or pneumonia. Lumber CT: No fractures within the lumbar spine. Alignment appears intact. There is advanced degenerative changes within the lower facets. Moderate to space narrowing at L5-S1. Mild disc space are at L4-L5. There are severe disc space narrowing at L1-L2, L2-L3, and L3-L4 with small endplate osteophytes. Levoscoliosis of the lumbar spine. The visualized sacrum appears intact. Paraspinal soft tissues are unremarkable. Moderate to severe central canal narrowing at L3-L4 due to a disc bulge and ligamentum and facet hypertrophy. Suggest of a few tiny lytic lesions within the ribs Skeletal Survey Moderate cardiomegaly is noted. No airspace opacities are identified. There is no evidence for pulmonary edema. No cervical, thoracic or lumbar spine lytic lesion is identified. No compression fracture is identified. Moderate multilevel degenerative changes are present. There is mild levoscoliosis of the lumbar spine. The bowel gas pattern is normal. No suspicious lytic calvarial lesions are identified. No suspicious lytic lesions are identified within the humeri, femurs or pelvis. The subtle lytic lesions shown within several ribs on CT of August 04, 2017 are not apparent on this exam, likely due to technique Hospital Course/Summary Patient admitted for shaking spells after colonoscopy. Work up thus far has not shown any signs of perforation or complication from colonoscopy. Patient unlikely having septic source.No respiratory symptoms suggestive of pneumonia Was given zosyn, daptomycin, and levaquin in the ER, and then on ceftriaxone and azithromycin empirically for pneumonia Blood cultures negative Consideration was given for differential diagnosis of multiple myeloma given history of recurrent fevers or fever like symptoms at home over period of 2 months and imaging of lytic lesions on CT abdomen scan. However: skeletal survey did not find evidence of lytic lesions, SPEP results pending Urine studies with almost normal kappa/lambda 2.26 (flagged by lab as somewhat elevated) , base on free kappa 21.9 (flagged by lab as elevated) and free lambda 9.7 Discharge instructions Patient to be discharged with follow up on 08/12/17 ay 11;[address] Liao at [address], [place] [address] Vital Signs: Date Time Temp Pulse Resp B/P (MAP) Pulse Ox O2 Delivery O2 Flow Rate FiO2 08/06/17 08:30 Room Air 08/06/17 07:23 37.0 56 18 162/92 (115) 95 Room Air 08/06/17 00:11 37.3 52 19 143/85 (104) 94 Room Air 08/06/17 00:00 Room Air 08/05/17 15:39 36.9 59 16 127/80 (96) 96 Room Air 08/05/17 15:30 Room Air Lab Results: Results Past 24 Hours Test 08/06/17 00:28 08/06/17 07:50 Range/Units White Blood Count 7.03 4.8-10.8 K/uL Red Blood Count 4.26 4.7-6.1 M/uL Hemoglobin 13.3 14.0-18.0 g/dL Hematocrit 39.2 42-52 % Mean Corpuscular Volume 92.0 80-100 fL Mean Corpuscular Hemoglobin 31.2 25-34 pg Mean Corpuscular Hemoglobin Concent 33.9 32-36 g/dl Platelet Count 123 130-400 K/uL Mean Platelet Volume 10.1 7.4-10.4 fL Neutrophils (%) (Auto) 64.7 % Lymphocytes (%) (Auto) 22.2 % Monocytes (%) (Auto) 7.0 % Eosinophils (%) (Auto) 5.4 % Basophils (%) (Auto) 0.6 % Neutrophils # (Auto) 4.55 1.4-6.5 K/uL Lymphocytes # (Auto) 1.56 1.2-3.4 K/uL Monocytes # (Auto) 0.49 0.11-0.59 K/uL Eosinophils # (Auto) 0.38 0-0.5 K/uL Basophils # (Auto) 0.04 0-0.2 K/uL RDW Standard Deviation 46.6 36.4-46.3 fL RDW Coefficient of Variation 13.9 11.5-14.5 % Immature Granulocyte % (Auto) 0.1 % Immature Granulocyte # (Auto) 0.01 0.00-0.02 K/uL Sodium Level 140 136-145 mmol/L Potassium Level 4.1 3.5-5.1 mmol/L Chloride Level 107 98-107 mmol/L Carbon Dioxide Level 27 21-32 mmol/L Anion Gap 6.0 3-11 mmol/L Blood Urea Nitrogen 11 7-18 mg/dl Creatinine 1.02 0.60-1.40 mg/dl Est Creatinine Clear Calc Drug Dose 54.6 ml/min Estimated GFR () 79.0 Estimated GFR (Non- 68.1 BUN/Creatinine Ratio 10.4 10-20 Random Glucose 93 70-99 mg/dl Calcium Level 8.8 8.5-10.1 mg/dl
--- NOTE | 2017-08-06 14:18 | Discharge Instructions ---
Discharge Instructions Date of Service Aug 06, 2017. Admission Reason for Admission: Pneumonia Discharge Discharge Diagnosis / Problem: Chills (without fever), rib lesions Discharge Goals Goal(s): Learn about illness Activity Recommendations Activity Limitations: per Instructions/Follow-up section Shower/Bathe: no limitations . Instructions / Follow-Up Instructions / Follow-Up CXR: Low lung volumes. No pleural effusions. No pneumothorax. The right lung is clear. The heart is mildly enlarged. Hazy appearance to the left mid to lower lung zone Abdomen/Pelvis CT Small patchy density within the lingula which is partially visualized. No pneumoperitoneum. No pneumatosis. There are few scattered tiny lytic lesions seen within the ribs. Dominant lesion within the left posterior 12th rib on image 133 measures 7 mm. The visualized ascending thoracic aorta measures up to 4.6 cm and diameter. Small hiatus hernia. Low-density soft tissue nodule adjacent to the distal descending thoracic aorta is nonspecific but could be related to the venous structures. This measures 1.5 cm. The liver, gallbladder, pancreas, and adrenal glands are unremarkable. There are few tiny hypodensities within the inferior spleen with the largest measuring 3 mm. These are too small to characterize. There are few tiny hypodense lesions within the left kidney measuring up to 3 mm. These are also too small to characterize. A 3 mm stone within the upper pole of the right kidney. No ureteral stones. No hydronephrosis. The bladder is not well-distended. There may be mild bladder wall thickening. No retroperitoneal lymphadenopathy. Colonic diverticulosis. No bowel wall thickening or obstruction. The appendix is not identified and is likely surgically absent. The prostate gland is mildly enlarged. IMPRESSION: 1. No bowel wall thickening or obstruction. 2. Colonic diverticulosis. 3. Right-sided nephrolithiasis. No ureteral stones. No hydronephrosis. 4. Aneurysmal dilatation of the ascending thoracic aorta which measures up to 4.6 cm in diameter. 5. A few scattered tiny lytic lesions seen within the ribs. These are nonspecific but raise the possibility of a neoplastic process such as multiple myeloma. Clinical correlation recommended. 6. Mild bladder wall thickening. This is likely due to underdistention. Recommend correlation with urinalysis. 7. Small patchy density within the lingula. This could represent atelectasis or pneumonia. Lumber CT: No fractures within the lumbar spine. Alignment appears intact. There is advanced degenerative changes within the lower facets. Moderate to space narrowing at L5-S1. Mild disc space are at L4-L5. There are severe disc space narrowing at L1-L2, L2-L3, and L3-L4 with small endplate osteophytes. Levoscoliosis of the lumbar spine. The visualized sacrum appears intact. Paraspinal soft tissues are unremarkable. Moderate to severe central canal narrowing at L3-L4 due to a disc bulge and ligamentum and facet hypertrophy. Suggest of a few tiny lytic lesions within the ribs Skeletal Survey Moderate cardiomegaly is noted. No airspace opacities are identified. There is no evidence for pulmonary edema. No cervical, thoracic or lumbar spine lytic lesion is identified. No compression fracture is identified. Moderate multilevel degenerative changes are present. There is mild levoscoliosis of the lumbar spine. The bowel gas pattern is normal. No suspicious lytic calvarial lesions are identified. No suspicious lytic lesions are identified within the humeri, femurs or pelvis. The subtle lytic lesions shown within several ribs on CT of August 04, 2017 are not apparent on this exam, likely due to technique Hospital Course/Summary Patient admitted for shaking spells after colonoscopy. Work up thus far has not shown any signs of perforation or complication from colonoscopy. Patient unlikely having septic source.No respiratory symptoms suggestive of pneumonia Was given zosyn, daptomycin, and levaquin in the ER, and then on ceftriaxone and azithromycin empirically for pneumonia Blood cultures negative Consideration was given for differential diagnosis of multiple myeloma given history of recurrent fevers or fever like symptoms at home over period of 2 months and imaging of lytic lesions on CT abdomen scan. However: skeletal survey did not find evidence of lytic lesions, SPEP results pending Urine studies with almost normal kappa/lambda 2.26 (flagged by lab as somewhat elevated) , base on free kappa 21.9 (flagged by lab as elevated) and free lambda 9.7 Discharge instructions Patient to be discharged with follow up on 08/12/17 ay 11;[address] Liao at [address] [place] [address] Dr, [place] [address] Current Hospital Diet Patient's current hospital diet: Regular Diet Discharge Diet Recommended Diet: Regular Diet Pending Studies Studies pending at discharge: no List of pending studies: SPEP Laboratory Results 08/06/17 07:50 Red Blood Count 4.26, Mean Corpuscular Volume 92.0, Mean Corpuscular Hemoglobin 31.2, Mean Corpuscular Hemoglobin Concent 33.9, Mean Platelet Volume 10.1, Neutrophils (%) (Auto) 64.7, Lymphocytes (%) (Auto) 22.2, Monocytes (%) (Auto) 7.0, Eosinophils (%) (Auto) 5.4, Basophils (%) (Auto) 0.6, Neutrophils # (Auto) 4.55, Lymphocytes # (Auto) 1.56, Monocytes # (Auto) 0.49, Eosinophils # (Auto) 0.38, Basophils # (Auto) 0.04 08/06/17 07:50 Test 08/04/17 18:23 08/04/17 18:35 08/04/17 18:45 08/04/17 19:06 Bedside Glucose 169 mg/dl (70-99) Influenza Type A Antigen Neg for Influ A (NEG) Influenza Type B Antigen Neg for Influ B (NEG) Prothrombin Time 11.0 SECONDS (9.0-12.0) Prothromb Time International Ratio 1.0 (0.9-1.1) Activated Partial Thromboplast Time 22.9 SECONDS (21.0-31.0) Partial Thromboplastin Ratio 0.9 Total Bilirubin 0.6 mg/dl (0.2-1) Aspartate Amino Transf (AST/SGOT) 27 U/L (15-37) Alanine Aminotransferase (ALT/SGPT) 37 U/L (12-78) Alkaline Phosphatase 60 U/L (45-117) Total Creatine Kinase 71 U/L (39-308) Creatine Kinase MB 1.4 ng/ml (0.5-3.6) Creatine Kinase MB Ratio 2.0 (0-3.0) Troponin I < 0.015 ng/ml (0-0.045) Total Protein 6.7 gm/dl (6.4-8.2) Albumin 3.4 gm/dl (3.4-5.0) Globulin 3.3 gm/dl (2.5-4.0) Albumin/Globulin Ratio 1.0 (0.9-2) Procalcitonin 0.05 ng/ml (0-0.5) Lyme Disease IgG Antibody NEG (NEG) Lyme Disease IgM Antibody NEG (NEG) Bedside Lactic Acid Venous 1.60 mmol/L (0.90-1.70) Test 08/04/17 19:09 08/04/17 19:22 08/05/17 06:39 08/06/17 00:28 Bedside Hemoglobin 13.6 g/dl (14.0-18.0) Bedside Hematocrit 40 % (42-52) Bedside Sodium 141 mEq/L (135-144) Bedside Potassium 3.6 mEq/L (3.3-5.0) Bedside Chloride 102 mEq/L (101-112) Bedside Total CO2 23 mEq/l (24-31) Bedside Blood Urea Nitrogen 13 mg/dl (7-18) Bedside Creatinine 0.8 mg/dl (0.6-1.3) Bedside Glucose (other) 166 mg/dl (70-99) Bedside Ionized Calcium (Armin) 1.13 mmol/l (1.12-1.32) Urine Color YELLOW Urine Appearance CLEAR (CLEAR) Urine pH 5.0 (4.5-7.5) Urine Specific Yale 1.020 (1.000-1.030) Urine Glucose (UA) NEG (NEG) Urine Ketones TRACE (NEG) Urine Occult Blood 1+ (NEG) Urine Nitrite NEG (NEG) Urine Bilirubin NEG (NEG) Urine Urobilinogen NEG (NEG) Urine Leukocyte Esterase NEG (NEG) Urine RBC 0-4 /hpf (0-4) Urine WBC 1-5 /hpf (0-5) Urine Epithelial Cells 0-5 /lpf (0-5) Urine Bacteria NEG (NEG) Magnesium Level 1.9 mg/dl (1.8-2.4) Free [place] Light Chains, Quant 21.9 MG/L (3.3-19.4) Free Lambda Light Chains, Quant 9.7 MG/L (5.7-26.3) Free [place]/Lambda Light Chain Ratio 2.26 (0.26-1.65) Test 08/06/17 07:50 White Blood Count 7.03 K/uL (4.8-10.8) Red Blood Count 4.26 M/uL (4.7-6.1) Hemoglobin 13.3 g/dL (14.0-18.0) Hematocrit 39.2 % (42-52) Mean Corpuscular Volume 92.0 fL (80-100) Mean Corpuscular Hemoglobin 31.2 pg (25-34) Mean Corpuscular Hemoglobin Concent 33.9 g/dl (32-36) Platelet Count 123 K/uL (130-400) Mean Platelet Volume 10.1 fL (7.4-10.4) Neutrophils (%) (Auto) 64.7 % Lymphocytes (%) (Auto) 22.2 % Monocytes (%) (Auto) 7.0 % Eosinophils (%) (Auto) 5.4 % Basophils (%) (Auto) 0.6 % Neutrophils # (Auto) 4.55 K/uL (1.4-6.5) Lymphocytes # (Auto) 1.56 K/uL (1.2-3.4) Monocytes # (Auto) 0.49 K/uL (0.11-0.59) Eosinophils # (Auto) 0.38 K/uL (0-0.5) Basophils # (Auto) 0.04 K/uL (0-0.2) RDW Standard Deviation 46.6 fL (36.4-46.3) RDW Coefficient of Variation 13.9 % (11.5-14.5) Immature Granulocyte % (Auto) 0.1 % Immature Granulocyte # (Auto) 0.01 K/uL (0.00-0.02) Anion Gap 6.0 mmol/L (3-11) Est Creatinine Clear Calc Drug Dose 54.6 ml/min Estimated GFR () 79.0 Estimated GFR (Non- 68.1 BUN/Creatinine Ratio 10.4 (10-20) Calcium Level 8.8 mg/dl (8.5-10.1) Date/Time Source Procedure Growth Status 08/04/17 19:00 Blood Blood Culture - Preliminary NO GROWTH TO DATE. Resulted Medical Emergencies . Who to Call and When: Medical Emergencies: If at any time you feel your situation is an emergency, please call 911 immediately. . Non-Emergent Contact Non-Emergency issues call your: Primary Care Provider Call Non-Emergent contact if: you have any medication questions . . "Provider Documentation" section prepared by Mathew Vaughn. . VTE Core Measure Inpt VTE Proph given/why not?: Enoxaparin (Lovenox)SQ
--- NOTE | 2017-08-06 14:23 | Discharge Summary ---
Discharge Summary Date of Service Aug 06, 2017. Discharge Summary Admission Date: Aug 04, 2017 at 21:09 Discharge Date: Aug 06, 2017 Discharge Disposition: Home Principal Diagnosis: chills (without fever), rib lesions Pending Studies/Follow-Up: SPEP Medication Reconciliation Continued Medications: Aspirin (Aspirin Ec) 81 Mg Tab 81 MG PO QPM Atorvastatin (Lipitor) 40 Mg Tab 40 MG PO QPM, TAB Clopidogrel Bisulfate (Plavix) 75 Mg Tab 1 TAB PO QAM, TAB 3 Refills Levothyroxine Sodium (Levothyroxine Sodium) 88 Mcg Tab 1 TAB PO QAM, TAB 3 Refills Lisinopril (Prinivil) 10 Mg Tab 5 MG PO QPM, TAB Metoprolol Succ (Toprol Xl) (Toprol-Xl) 25 Mg Tabcr 25 MG PO QAM, #30 TAB Nitroglycerin (Nitrostat) 0.4 Mg Tab 0.4 MG UT PRN, BTL Ocuvite Preservision (Ocuvite Preservision) 1 Tab Tab 1 TAB PO BID, TAB Omeprazole (Prilosec) 20 Mg Capcr 20 MG PO BID, CAP Admission Information HPI (per Admitting provider): Patient is an 81 yo male who presents to the hospital today for complaints of rigors and chills which began earlier this afternoon after the patient had an outpatient colonoscopy and ate lunch. He states his symptoms began as soon as he came home from lunch, and that he required several blankets to get him feeling better. He denies any other similar symptoms. He states he had a minor aspiration episode earlier today after the colonoscopy but had not been coughing prior to that. He reports having upper back and upper chest soreness for the last 1 week but denies any injury or coughing. He also reports that he has been worked up the last 2 months for unexplained weight loss, weakness, and ambulatory dysfunction. He underwent an EGD and colonoscopy which were both negative. The patient reports decreased appetite and decreased desire to eat or do activities he used to enjoy. He reports feeling tired and weak all the time. He also reports having constipation, but thinks the laxatives and stool softeners seem to make him feel even weaker. He denies any CP, SOB, palpitations , melena, hematochezia, or urinary symptoms. Denies any recent illness or sick contacts. No recent medication changes. Physical Exam (per Admitting): General Appearance: WD/WN, no apparent distress Head: normocephalic, atraumatic Eyes: PERRL, EOMI, sclerae normal (conjunctivae clear) ENT: hearing grossly normal Neck: supple, no adenopathy, no JVD, no carotid bruits, trachea midline Respiratory/Chest: chest non-tender, lungs clear, normal breath sounds, no respiratory distress, no accessory muscle use Cardiovascular: regular rate, rhythm, no edema, no gallop, no JVD Abdomen/GI: normal bowel sounds, non tender, soft, no organomegaly Back: normal inspection, no CVA tenderness Extremities/Musculoskelatal: no calf tenderness, no pedal edema, non-tender Neurologic/Psych: no motor/sensory deficits, alert, normal mood/affect, oriented x 3 Skin: normal color, warm/dry, no rash Hospital Course Imaging CXR: Low lung volumes. No pleural effusions. No pneumothorax. The right lung is clear. The heart is mildly enlarged. Hazy appearance to the left mid to lower lung zone Abdomen/Pelvis CT Small patchy density within the lingula which is partially visualized. No pneumoperitoneum. No pneumatosis. There are few scattered tiny lytic lesions seen within the ribs. Dominant lesion within the left posterior 12th rib on image 133 measures 7 mm. The visualized ascending thoracic aorta measures up to 4.6 cm and diameter. Small hiatus hernia. Low-density soft tissue nodule adjacent to the distal descending thoracic aorta is nonspecific but could be related to the venous structures. This measures 1.5 cm. The liver, gallbladder, pancreas, and adrenal glands are unremarkable. There are few tiny hypodensities within the inferior spleen with the largest measuring 3 mm. These are too small to characterize. There are few tiny hypodense lesions within the left kidney measuring up to 3 mm. These are also too small to characterize. A 3 mm stone within the upper pole of the right kidney. No ureteral stones. No hydronephrosis. The bladder is not well-distended. There may be mild bladder wall thickening. No retroperitoneal lymphadenopathy. Colonic diverticulosis. No bowel wall thickening or obstruction. The appendix is not identified and is likely surgically absent. The prostate gland is mildly enlarged. IMPRESSION: 1. No bowel wall thickening or obstruction. 2. Colonic diverticulosis. 3. Right-sided nephrolithiasis. No ureteral stones. No hydronephrosis. 4. Aneurysmal dilatation of the ascending thoracic aorta which measures up to 4.6 cm in diameter. 5. A few scattered tiny lytic lesions seen within the ribs. These are nonspecific but raise the possibility of a neoplastic process such as multiple myeloma. Clinical correlation recommended. 6. Mild bladder wall thickening. This is likely due to underdistention. Recommend correlation with urinalysis. 7. Small patchy density within the lingula. This could represent atelectasis or pneumonia. Lumber CT: No fractures within the lumbar spine. Alignment appears intact. There is advanced degenerative changes within the lower facets. Moderate to space narrowing at L5-S1. Mild disc space are at L4-L5. There are severe disc space narrowing at L1-L2, L2-L3, and L3-L4 with small endplate osteophytes. Levoscoliosis of the lumbar spine. The visualized sacrum appears intact. Paraspinal soft tissues are unremarkable. Moderate to severe central canal narrowing at L3-L4 due to a disc bulge and ligamentum and facet hypertrophy. Suggest of a few tiny lytic lesions within the ribs Skeletal Survey Moderate cardiomegaly is noted. No airspace opacities are identified. There is no evidence for pulmonary edema. No cervical, thoracic or lumbar spine lytic lesion is identified. No compression fracture is identified. Moderate multilevel degenerative changes are present. There is mild levoscoliosis of the lumbar spine. The bowel gas pattern is normal. No suspicious lytic calvarial lesions are identified. No suspicious lytic lesions are identified within the humeri, femurs or pelvis. The subtle lytic lesions shown within several ribs on CT of August 04, 2017 are not apparent on this exam, likely due to technique Hospital Course/Summary Patient admitted for shaking spells after colonoscopy. Work up thus far has not shown any signs of perforation or complication from colonoscopy. Patient unlikely having septic source.No respiratory symptoms suggestive of pneumonia Was given zosyn, daptomycin, and levaquin in the ER, and then on ceftriaxone and azithromycin empirically for pneumonia Blood cultures negative Consideration was given for differential diagnosis of multiple myeloma given history of recurrent fevers or fever like symptoms at home over period of 2 months and imaging of lytic lesions on CT abdomen scan. However: skeletal survey did not find evidence of lytic lesions, SPEP results pending Urine studies with almost normal kappa/lambda 2.26 (flagged by lab as somewhat elevated) , base on free kappa 21.9 (flagged by lab as elevated) and free lambda 9.7 Discharge instructions Patient to be discharged with follow up on 08/12/17 ay 11;[address] Liao at [address] [facility] [address], [place] [address] Total time spent on discharge = 60 minutes This includes examination of the patient, discharge planning, medication reconciliation, and communication with other providers. Discharge Instructions see above
[2017-08-06 14:36] VITALS: BP 162/92; PULSE 56; TEMP 37; O2SAT 95
== END 2017-08-06 15:13 | disposition home or self-care (01) | DRG 194 ==
LOC: C.EDB 16:58 → C.MS2W 21:09 → ENRESERV 22:01
PROVIDERS: ADMIT Internal Medicine; ATTEND Hospitalist
DX: J18.9 Pneumonia, unspecified organism (principal); C90.00 Multiple myeloma not having achieved remission; R68.89 Other general symptoms and signs; R68.83 Chills (without fever); M89.9 Disorder of bone, unspecified; R63.4 Abnormal weight loss; R53.1 Weakness; I25.10 Atherosclerotic heart disease of native coronary artery without angina pectoris; I10 Essential (primary) hypertension; E78.5 Hyperlipidemia, unspecified; E03.9 Hypothyroidism, unspecified; Z98.890 Other specified postprocedural states; Z68.27 Body mass index [BMI] 27.0-27.9, adult; Z80.7 Family history of other malignant neoplasms of lymphoid, hematopoietic and related tissues; Z79.82 Long term (current) use of aspirin; Z79.01 Long term (current) use of anticoagulants; Z79.899 Other long term (current) drug therapy; Z88.5 Allergy status to narcotic agent

== ENCOUNTER → 2017-08-04 | Day surgery (SDC) | payer OTHER ==
[2017-07-30 10:33] VITALS: Ht 167.6 cm; Wt 77.3 kg
[~2017-08-04] VITALS: Ht 167.6 cm; Wt 77.3 kg
[~2017-08-04] MED LIST: ASPCH81X PO; ASPI81TA28 PO; ATOR-24 PO; LEVO88TA3 PO; LIDOCAINE HCL 2% 2 ML VIAL (20MG/ML) ONE; LISI10TA PO; METO25TA3 PO; MULT-190 PO; NTRGSL/4 UT; PLAVIX75 PO; PRLSR20 PO; PROPOFOL IV EMULSION 10 MG/ML 20 ML VIAL IV ONE; SODIUM CHLORIDE 0.9% 500ML 500 ML IV ONE
--- NOTE | 2017-08-04 10:51 | Endo History and Physical ---
History & Physical Date of Service: Aug 04, 2017. Chief Complaint: Constipation Referring Physician: Aftab Stubbs History of Present Illness screening and altered bowels Past Surgical History Hx Cardiac Surgery: Yes (HEART CATH-1 STENT) Hx Internal Defibrillator: No Hx Pacemaker: No Hx Abdominal Surgery: Yes (APPY) Hx of Implantable Prosthesis: No Hx Post-Op Nausea and Vomiting: No Hx Cancer Surgery: No Hx Thoracic Surgery: No Hx Orthopedic: No Hx Urinary Tract Surgery: No Family History None Social History Smoking Status: Former Smoker Hx Substance Use: No Hx Alcohol Use: No Allergies Coded Allergies: Codeine (Verified Allergy, Unknown, CONSTIPATION, 08/04/17) Current Medications Reported Home Medications Medications Dose Route/Sig Max Daily Dose Days Date Category Nitrostat (Nitroglycerin) 0.4 Mg Tab 0.4 Mg UT PRN 07/30/17 Reported Aspirin Chewable (Aspirin) 81 Mg Chew 81 Mg PO QPM 07/30/17 Reported Lipitor (Atorvastatin Calcium) 40 Mg Tab 40 Mg PO QPM 07/30/17 Reported Prinivil (Lisinopril) 10 Mg Tab 5 Mg PO QPM 07/30/17 Reported Prilosec (Omeprazole) 20 Mg Capcr 20 Mg PO BID 07/30/17 Reported Plavix (Clopidogrel Bisulfate) 75 Mg Tab 1 Tab PO QAM 07/30/17 Reported Levothyroxine Sodium 88 Mcg Tab 1 Tab PO QAM 07/30/17 Reported Toprol-Xl (Metoprolol Succinate) 25 Mg Tabcr 25 Mg PO QAM 07/30/17 Reported Ocuvite Preservision (Multivitamins/Minerals) 1 Tab Tab 1 Tab PO BID 07/30/17 Reported Vital Signs Weight (Kilograms): 77.27 Height (Feet): 5 Height (Inches): 6 Date Time Temp Pulse Resp B/P (MAP) Pulse Ox O2 Delivery O2 Flow Rate FiO2 08/04/17 10:30 36.4 73 18 126/94 (105) 95 Room Air Physical Exam General Appearance: no apparent distress Respiratory/Chest: Auscultation: breath sounds normal Cardiovascular: Heart Auscultation: RRR Abdomen: Inspection & Palpation: soft Liver: non-tender Assessment and Plan stable for colonoscopy
--- NOTE | 2017-08-04 11:23 | Discharge Instructions ---
Endoscopy Patient Instructions Date / Procedure(s) Performed Aug 04, 2017. Colonoscopy Allergy Information Coded Allergies: Codeine (Verified Allergy, Unknown, CONSTIPATION, 08/04/17) Discharge Date / Findings Aug 04, 2017. Normal colonoscopy Medication Instructions Stopped Medication(s): Aspirin last taken on 07/26/17 Plavix last taken on 07/26/17 Provider Instructions Activity Restrictions - No exercising or heavy lifting for 24 hours. - Do not drink alcohol the day of the procedure. - Do not drive a car or operate machinery until the day after the procedure. - Do not make any important decisions or sign important papers in 24 hours after the procedure. Following Day: - Return to full activity which may include returning to work/school. Diet Start your diet with liquids and light foods (jello, soup, juice, toast). Then eat your usual diet if not nauseated. Treatment For Common After Affects For mild abdominal pain, bloating, or excessive gas: - Rest - Eat lightly - Lie on right side Follow-Up Information Follow-up with Aftab Stubbs as scheduled Anesthesia Information What You Should Know You have had a procedure that required some medicine to reduce anxiety and discomfort. This treatment is called moderate sedation. After receiving the treatment, you may be sleepy, but you will be able to breathe on your own. The effects of the treatment may last for several hours. Follow these instructions along with Activity/Diet recommendations noted above: * Do NOT do anything where dizziness or clumsiness would be dangerous. * Rest quietly at home today, then you can be up and about tomorrow. * Have a responsible person stay with you the rest of today. * You may have had an I.V. today. If so, you may take the dressing off later today. Recommendations Call your doctor if: * Trouble breathing * Continuous vomiting for more than 24 hours * Temperature above 101 degrees * Severe abdominal pain or bloating * Pain not relieved by pain medicine ordered * There is increased drainage or redness from any incision * A large amount of rectal bleeding greater than 2-3 tablespoons. (If you had a polyp/s removed or have hemorrhoids, a small amount of blood - from the rectum is to be expected.) * You have any unanswered questions or concerns. IN THE EVENT OF A SERIOUS EMERGENCY, GO TO THE NEAREST EMERGENCY ROOM Your discharge instructions were prepared by provider Kelby Salazar. Patient Instructions Signature Page Venu Bloom Patient (or Guardian) Signature/Date: I have read and understand the instructions given to me by my caregivers. Caregiver/RN/Doctor Signature/Date: The above-named patient and/or guardian has received patient instructions on this date. + Original Patient Signature Page (only) stays with chart. Please make copy for patient.
--- NOTE | 2017-08-04 11:30 | GI REPORT ---
Procedure Date: 08/04/2017 10:50 AM Procedure: Colonoscopy Indications: Change in bowel habits, Change in stool caliber, Constipation Medicines: See the Anesthesia note for documentation of the administered medications Complications: No immediate complications. Estimated Blood Loss: Estimated blood loss: none. Procedure: Pre-Anesthesia Assessment: - Prior to the procedure, a History and Physical was performed, and patient medications, allergies and sensitivities were reviewed. The patient's tolerance of previous anesthesia was reviewed. - The risks and benefits of the procedure and the sedation options and risks were discussed with the patient. All questions were answered and informed consent was obtained. - Patient identification and proposed procedure were verified prior to the procedure by the physician and the nurse. The procedure was verified in the pre-procedure area. - Pre-procedure physical examination revealed no contraindications to sedation. - After reviewing the risks and benefits, the patient was deemed in satisfactory condition to undergo the procedure. After I obtained informed consent, the scope was passed under direct vision. Throughout the procedure, the patient's blood pressure, pulse, and oxygen saturations were monitored continuously. The Scope was introduced through the anus and advanced to the cecum, identified by appendiceal orifice and ileocecal valve. The colonoscopy was performed without difficulty. The patient tolerated the procedure well. The quality of the bowel preparation was good. Findings: The perianal and digital rectal examinations were normal except for small hemorrhoids and mild stenosis. Multiple small-mouthed diverticula were found in the sigmoid colon and descending colon. The exam was otherwise without abnormality on direct and retroflexion views. Impression: - Diverticulosis in the sigmoid colon and in the descending colon. - The examination was otherwise normal on direct and retroflexion views. - Hemorrhoids and a mild degree of anal stenosis. - No specimens collected. Recommendation: - Discharge patient to home. Kelby Salazar M.D. Kelby Salazar MD 08/04/2017 11:29:51 AM This report has been signed electronically. Note Initiated On: 08/04/2017 10:50 AM I attest to the content of the Intraoperative Record and orders documented therein, exceptions below
[2017-08-04 11:49] VITALS: BP 145/85; PULSE 56; O2SAT 96
--- NOTE | 2017-08-04 11:55 | Anesthesiology Progress Note ---
Anesthesia Post Op Note Date & Time Aug 04, 2017 at 11:55 Vital Signs Pain Intensity: 0 Vital Signs Past 12 Hours Date Time Temp Pulse Resp B/P (MAP) Pulse Ox O2 Delivery O2 Flow Rate FiO2 08/04/17 11:49 56 18 145/85 (105) 96 Room Air 08/04/17 11:34 61 18 123/74 (90) 94 Room Air 08/04/17 11:19 62 18 113/70 (84) 95 Room Air 08/04/17 10:30 36.4 73 18 126/94 (105) 95 Room Air Notes Mental Status: alert / awake / arousable, participated in evaluation Pt Amnestic to Procedure: Yes Nausea / Vomiting: adequately controlled Pain: adequately controlled Airway Patency, RR, SpO2: stable & adequate BP & HR: stable & adequate Hydration State: stable & adequate Anesthetic Complications: no major complications apparent
== END | disposition home or self-care (01) ==
LOC: C.GI 09:45
PROVIDERS: ATTEND Internal Medicine Gastroenterology
DX: K59.00 Constipation, unspecified (principal); K57.30 Diverticulosis of large intestine without perforation or abscess without bleeding; R19.4 Change in bowel habit; Z87.891 Personal history of nicotine dependence; Z88.5 Allergy status to narcotic agent; Z79.899 Other long term (current) drug therapy; Z79.82 Long term (current) use of aspirin; Z79.02 Long term (current) use of antithrombotics/antiplatelets